=== PATIENT | female | born 1940 | race Caucasian/White ===

== ENCOUNTER 2017-12-02 07:42 | Emergency (ER) | payer MEDICARE ==
--- NOTE | 2017-12-02 07:49 | UC ---
Head Injury HPI - HPI Summary HPI Summary: This is abhishek Lees documenting for attending Larry Adams . This patient is a 77 year old F presenting to [facility] [place] accompanied by her after she fell trying to sit on a stool earlier this morning. 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 The patient rates the pain 8/10 in severity. Patient reports rib pain, scalp laceration, back pain, and trouble breathing. Patient denies dizziness, any other pain, LOC, and neck pain. Pt is not on blood thinners. She has not taken anything for pain. - History Of Current Complaint Stated Complaint: HEAD/RIB INJURY Hx Obtained From: Patient Onset/Duration: Lasting Hours, Still Present Severity Currently: Severe Severity Initially: Severe Pain Intensity: 8 Pain Scale Used: 0-10 Numeric Associated Signs And Symptoms: Positive: Negative - dizziness, any other pain, LOC, and neck pain, Other - rib pain, scalp laceration, back pain, and trouble breathing. - Allergies/Home Medications Allergies/Adverse Reactions: Allergies Allergy/AdvReac Type Severity Reaction Status Date / Time diazepam [From Valium] Allergy unk Verified 12/02/17 07:55 Home Medications: Home Medications Alendronate Sodium 70 mg PO DAILY 12/02/17 [History Confirmed 12/02/17] PMH/Surg Hx/FS Hx/Imm Hx Respiratory History: COPD, Asthma Neurological History: Dementia Other History Of: Negative For: Anticoagulant Therapy - Surgical History Surgical History: Yes Surgery Procedure, Year, and Place: partial lt lung [id number] - Family History Known Family History: Positive: Respiratory Disease Negative: Hypertension, Seizure Disorder, Blood Disorder - Social History Lives: With Family - Alcohol Use: None Substance Use Type: None Smoking Status (MU): Never Smoked Tobacco Review of Systems Constitutional: Other - mechanical fall with head injury Skin: Other - head laceration Respiratory: Other - trouble breathing due to pain Musculoskeletal: Other: - rib pain and back pain All Other Systems Reviewed And Are Negative: Yes Physical Exam - Summary Physical Exam Summary: General: moderate pain distress, no pain distress Skin: on her occiput there is a 5cm scalp laceration that is not actively bleeding Head: normal Eyes: EOMI, DEREK ENT: normal Neck: supple, nontender, she is non tender in the T spine area Respiratory: CTA, breath sounds present Cardiovascular: RRR Abdomen: soft, nontender Bowel: present Musculoskeletal: normal, strength/ROM intact Neurological: sensory/motor intact, A&O x3 Psychological: affect/mood appropriate Triage Information Reviewed: Yes Vital Signs Reviewed: Yes Procedures - Laceration/Wound Repair 1 Location: head Description: Linear Anesthesia: 1.0% - 1cc Length, Depth and Shape: 5cm x subcuntaneous Betadine Prep?: No - Chlorohexadine was used Closure: Chandler #__ - 5 Diagnostics - Radiology CXR Radiology Interpretation Completed By: Radiologist - Hyperinflated lung beck. Left apical pleural thickening and nodular densities in the right upper lobe likely representing chronic changes and scarring. No changes noted since previous exam. Postoperative changes are noted in the left hilum. Dr. Adams has reviewed this report. CT Head Radiology Interpretation Completed By: Radiologist - No intracranial mass or hemorrhage is noted. Dr. Adams has reviewed this report. CT-C spine Radiology Interpretation Completed By: Radiologist - Multilevel degenerative disc disease is noted. No fracture of the cervical spine is noted. Dr. Adams has reviewed this report. CT- Chest Radiology Interpretation Completed By: Radiologist - POSTOPERATIVE CHANGES LEFT HEMITHORAX. NO ACUTE FINDINGS. MULTIPLE COMPRESSION DEFORMITIES MINOR PROGRESSION. Dr. Adams has reviewed this report. Re-Evaluation - Re-Evaluation First Eval Re-Evaluation Time: 08:49 Change: Unchanged Comment: I disucssed the Xray results with the patient and her . Head Injury Course/Dx - Course Course Of Treatment: DISCUSSED RESULTS WITH THE PATIENT AND HER . F/U PMD; RECHECK SOONER IF WORSE. - Differential Dx/Diagnosis Provider Diagnoses: SCALP LACERATION. HEAD INJURY. RIB CONTUSION Discharge - Sign-Out/Discharge Documenting (check all that apply): Patient Departure - Discharge Plan Condition: Stable Disposition: HOME Patient Education Materials: Laceration (ED), Rib Fracture (ED), Head Injury ( ED) Referrals: Clari Mcneal MD [Primary Care Provider] - Additional Instructions: FOLLOW UP WITH YOUR DOCTOR. KARYN OUT IN 7-8 DAYS. GET RECHECKED FOR ANY WORSENING OF YOUR CONDITION; WEAKNESS, NUMBNESS, CONFUSION OR QUESTIONS OR CONCERNS. - Billing Disposition and Condition Condition: STABLE Disposition: Home Attestation Statement Scribe Attestation: This is abhishek Lees documenting for attending Larry Adams . User Type: Provider with Scribe Provider Attestation: The documentation recorded by the scribe accurately reflects the service I personally performed and the decisions made by me.
[2017-12-02] MEDS ORDERED: Acetaminophen TAB* 325 MG PO ONE (08:19)
--- NOTE | 2017-12-02 08:44 | RAD ---
Indication: Chest pain. 2 views of the chest including dual energy PA views demonstrate no mediastinal shift. Heart is of normal size and configuration. There is pleural thickening in the left apex. This is unchanged from previous exam. Lung beck appear hyperinflated. Nodular densities in the right upper lobe are unchanged from previous exam. IMPRESSION: Hyperinflated lung beck. Left apical pleural thickening and nodular densities in the right upper lobe likely representing chronic changes and scarring. No changes noted since previous exam. Postoperative changes are noted in the left hilum.
--- NOTE | 2017-12-02 09:41 | RAD ---
Indication: Fall, head injury. CT of the brain was performed without IV contrast. Ventricular structures are midline. No midline shift is noted. The extra-axial spaces are unremarkable. Central and cortical atrophy is noted. There is no evidence of intracranial mass or hemorrhage. No other high or low density lesions are identified. Mastoid air cells and paranasal sinuses are otherwise unremarkable. IMPRESSION: No intracranial mass or hemorrhage is noted.
--- NOTE | 2017-12-02 09:51 | RAD ---
Indication: Neck injury. CT of the cervical spine was obtained in the axial plane. Sagittal and coronal reconstructed images were obtained. The skull base demonstrates no evidence of fracture. Mastoid air cells are well aerated. Degenerative changes of the atlantoaxial joint is noted. The vertebral bodies appear normal in height. No fracture is noted. Disc space narrowing at C2-C3 is noted. Spondylitic ridge is noted. Osteophyte formation is noted. At C3-C4 left facet arthropathy is noted. No central or foraminal stenosis is noted. At C4-C5 spondylitic ridge with left uncovertebral joint hypertrophy narrowing the left foramen is noted. Left facet arthropathy is noted. At C5-C6 spondylitic ridge with right uncovertebral joint hypertrophy narrows the right foramen. No central stenosis is noted. At C6-C7 spondylitic ridge flattens the thecal sac. Bilateral uncovertebral joint hypertrophy narrows both foramen. At C7-T1 minimal degenerative disc disease is noted. IMPRESSION: Multilevel degenerative disc disease is noted. No fracture of the cervical spine is noted.
[2017-12-02] MEDS ORDERED: Lidocaine 1%* 5 ML VIAL INJ ONE (09:56)
[2017-12-02] MEDS ORDERED: Lidocaine 1%* 5 ML VIAL ONE (09:57)
[2017-12-02 10:03] VITALS: BP 144/75
--- NOTE | 2017-12-02 10:04 | RAD ---
INDICATION: Fall. Chest pain. History of left thoracotomy. History of compression fractures. COMPARISON: Chest x-ray same date; CT chest January 20, 2005; MRI thoracic spine May 15, 2016 TECHNIQUE: Axial source images were obtained from the thoracic inlet to the hemidiaphragms. Coronal and sagittal reconstructed images were acquired. The visualized neck to include the thyroid appear normal. Chest wall: There is osteopenia There are no acute abnormalities of the bony thorax or chest wall. There is evidence of remote left-sided thoracotomy with multiple left-sided rib deformities. No acute bony change is appreciated. There is kyphosis with multiple compression deformities several which are mildly progressive. The T9 and T5 vertebrae are most significantly involved and were described previously. There is no supraclavicular, infraclavicular, or axillary lymphadenopathy. Lungs : There are no worrisome pulmonary parenchymal masses or infiltrates. There is peripheral nodular change in the right lung base but this appears linear on the reconstructions and is most consistent with minimal scarring. There is left apical scarring related to prior surgery. There are underlying emphysematous changes. There are no endobronchial lesions. Cardiomediastinal structures: The heart is normal in size. There is no pericardial effusion. There is no evidence of aortic aneurysm or dissection. The pulmonary vessels appear normal. There is no mediastinal or hilar adenopathy. There are clips in left suprahilar region. The esophagus appears normal. Pleura : There are no pleural-based masses or effusions. Other: There are no acute or significant CT findings of the visualized upper abdomen. IMPRESSION: POSTOPERATIVE CHANGES LEFT HEMITHORAX. NO ACUTE FINDINGS. MULTIPLE COMPRESSION DEFORMITIES MINOR PROGRESSION.
== END 2017-12-02 11:01 | disposition home or self-care (01) ==
LOC: UCEAST 07:42
DX: S20.219A Contusion of unspecified front wall of thorax, initial encounter (principal); S01.01XA Laceration without foreign body of scalp, initial encounter; S09.90XA Unspecified injury of head, initial encounter; W17.89XA Other fall from one level to another, initial encounter; Y93.9 Activity, unspecified; Y92.9 Unspecified place or not applicable; Z88.8 Allergy status to other drugs, medicaments and biological substances
CPT/HCPCS: 12002; 70450; 71046; 71250; 72125; 99211; A9270-GY; G0463

== ENCOUNTER 2017-12-10 09:15 | Emergency (ER) | payer MEDICARE ==
[2017-12-10 09:20] VITALS: BP 146/99
--- NOTE | 2017-12-10 09:25 | UC ---
Laceration HPI - HPI Summary HPI Summary: This is scribe Ed Bernadette documenting for attending Dr. Larry Adams. 77 y/o female presents to the urgent care for staple removal. [place] have been in for 8 days. Located in the middle of the back of the head. Marivel in s/p fall off stool at home 12/02/17. Pt still has some back pain s/p fall, has been taking Tylenol to alleviate pain. PMHx HTN, [place]. I, Dr. Pugh, personally performed the services described in this documentation as scribed in my presence and it is both accurate and complete. - History Of Current Complaint Chief Complaint: UCLaceration Stated Complaint: STAPLE REMOVEAL Hx Obtained From: Patient Laceration Location: Back Mechanism Of Injury: Blunt Trauma - fall off stool Pain Intensity: 5 Pain Scale Used: 0-10 Numeric Aggravating Factors: Nothing - Allergies/Home Medications Allergies/Adverse Reactions: Allergies Allergy/AdvReac Type Severity Reaction Status Date / Time diazepam [From Valium] Allergy unk Verified 12/10/17 09:21 PMH/Surg Hx/FS Hx/Imm Hx Previously Healthy: No Respiratory History: COPD, Asthma Neurological History: Dementia Other History Of: Negative For: Anticoagulant Therapy - Surgical History Surgical History: Yes Surgery Procedure, Year, and Place: partial lt lung [id number] - Family History Known Family History: Positive: Respiratory Disease Negative: Hypertension, Seizure Disorder, Blood Disorder - Social History Alcohol Use: None Substance Use Type: None Smoking Status (MU): Never Smoked Tobacco Review of Systems Constitutional: Negative Skin: Other - marivel at back of head Eyes: Negative ENT: Negative Respiratory: Negative Cardiovascular: Negative Gastrointestinal: Negative Genitourinary: Negative Motor: Negative Neurovascular: Negative Musculoskeletal: Other: - back pain Neurological: Negative Psychological: Negative All Other Systems Reviewed And Are Negative: Yes Physical Exam Triage Information Reviewed: Yes Appearance: Well-Appearing, No Pain Distress Vital Signs: Initial Vital Signs Temp 98 F 12/10/17 09:17 Pulse 78 12/10/17 09:17 Resp 16 12/10/17 09:17 BP 146/99 12/10/17 09:17 Pulse Ox 99 12/10/17 09:17 Vital Signs Reviewed: Yes Eyes: Positive: Conjunctiva Clear ENT: Positive: Normal ENT inspection Neck: Positive: Supple, Nontender Respiratory: Positive: Lungs clear, Normal breath sounds Cardiovascular: Positive: RRR Abdomen Description: Positive: Nontender, Soft Bowel Sounds: Positive: Present Musculoskeletal: Positive: Strength Intact, ROM Intact Neurological: Positive: Alert Psychological: Positive: Age Appropriate Behavior Skin: Positive: Other - 5 cm occipital laceration. 5 marivel in. Some scabbing. No erythema, no drainage. Laceration Course/Dx - Course/Dx Course Of Treatment: LACERATION HEALING WELL, NO SIGNS OF INFECTION AT THIS TIME. - Differential Dx - Laceration/Wound Provider Diagnoses: SCALP STAPLE REMOVAL Discharge - Sign-Out/Discharge Documenting (check all that apply): Patient Departure - Discharge Plan Condition: Stable Disposition: HOME Patient Education Materials: Laceration (ED) Referrals: Clari Mcneal MD [Primary Care Provider] - Additional Instructions: FOLLOW UP WITH YOUR DOCTOR IF NOT COMPLETELY IMPROVED. GET RECHECKED FOR ANY WORSENING OF YOUR CONDITION OR QUESTIONS OR CONCERNS. - Billing Disposition and Condition Condition: STABLE Disposition: Home Procedures - Procedure Summary Procedure Summary: 5 marivel removed at 5 cm occipital laceration, placed 12/03/15
== END 2017-12-10 10:10 | disposition home or self-care (01) ==
LOC: UCEAST 09:15
DX: S01.01XD Laceration without foreign body of scalp, subsequent encounter (principal); W17.89XD Other fall from one level to another, subsequent encounter; Z88.8 Allergy status to other drugs, medicaments and biological substances

== ENCOUNTER 2019-01-04 02:42 | Emergency (ER) | payer MEDICARE ==
[2019-01-04 03:25] LABS: Urine Bacteria Absent (Absent); Urine Red Blood Cell 3+(>10/hpf) (Absent); Urine White Blood Cell 1+(6-10/hpf) (Absent)
[2019-01-04 03:26] LABS: Urine Appearance Cloudy; Urine Color Red
[2019-01-04] MEDS ORDERED: NS 0.9% 1000 ML** 1,000 ML IV ONE (03:30)
--- NOTE | 2019-01-04 03:31 | ED ---
GI/ HPI - HPI Summary HPI Summary: The patient is a 78 y/o F presenting to [facility] with a chief complaint of sudden onset hematuria at 0130 this morning. She reports that shes had increased urinary frequency over the last five days with newer onset dysuria and onset of blood in urine this morning. She denies any fever, nausea, abd pain, or back pain. She states that she doesnt usually have urinary symptoms. Currently, she rates the pain 7/10 in severity. She has used cranberry juice [employer] for preventative measures against a UTI, but her symptoms are still present. PMHx: HTN, asthma, COPD, PNA, diverticulosis, arthritis, headaches, migraines, anxiety , depression. Nonsmoker, no EtOH, no substance use. Medications reviewed. Allergies noted. - History of Current Complaint Chief Complaint: EDUrogenitalProblems Time Seen by Provider: 01/04/19 03:14 Stated Complaint: VAGINAL BLEEDING PER PT Hx Obtained From: Patient Onset/Duration: Started Days Ago - five, Still Present, Worse Since - 0130 today Timing: Lasting Hours Severity: Mild Current Severity: Moderate Pain Intensity: 7 Location of Pain: None Associated Signs and Symptoms: Positive: Hematuria, Dysuria, Other: - Negative: back pain.. Negative: Nausea, Fever, Abdominal Pain - Allergy/Home Medications Allergies/Adverse Reactions: Allergies Allergy/AdvReac Type Severity Reaction Status Date / Time diazepam [From Valium] Allergy unk Verified 01/04/19 02:47 Home Medications: Home Medications Umeclidin/Vilant 62.5 MDI(NF) [ANORO 62.5/25 Ellipta DEVICE (NF)] 1 puff .ROUTE DAILY 01/04/19 [History Confirmed 01/04/19] PMH/Surg Hx/FS Hx/Imm Hx Endocrine/Hematology History: Denies: Hx Anticoagulant Therapy, Hx Diabetes Cardiovascular History: Reports: Hx Hypertension, Other Cardiovascular Problems/ Disorders - PT UNSURE AND DENIES CURRENT ISSUES Denies: Hx Pacemaker/ICD Respiratory History: Reports: Hx Asthma, Hx Chronic Obstructive Pulmonary Disease (COPD), Hx Pneumonia GI History: Reports: Hx Diverticulosis History: Denies: Hx Dialysis, Hx Renal Disease Musculoskeletal History: Reports: Hx Arthritis, Hx Back Problems, Hx Orthopedic Injury, Hx Osteoporosis, Hx Scoliosis Sensory History: Reports: Hx Contacts or Glasses Denies: Hx Hearing Aid Opthamlomology History: Reports: Hx Contacts or Glasses Neurological History: Reports: Hx Headaches, Hx Migraine Psychiatric History: Reports: Hx Anxiety, Hx Depression Denies: Hx Panic Disorder - Cancer History Hx Chemotherapy: No Hx Radiation Therapy: No - Surgical History Surgical History: Yes Surgery Procedure, Year, and Place: partial lt lung [id number] [place] Infectious Disease History: No Infectious Disease History: Denies: Traveled Outside the [place] in Last 30 Days - Family History Known Family History: Positive: Respiratory Disease Negative: Hypertension, Seizure Disorder, Blood Disorder - Social History Alcohol Use: None Hx Substance Use: No Substance Use Type: Reports: None Hx Tobacco Use: No Smoking Status (MU): Never Smoked Tobacco Review of Systems Negative: Fever Negative: Abdominal Pain, Nausea Positive: dysuria, frequency - increased, hematuria Positive: Other - Negative: back pain. All Other Systems Reviewed And Are Negative: Yes Physical Exam - Summary Physical Exam Summary: General: Well-developed, Well-nourished female. No acute distress. HEENT: Normocephalic, Atraumatic. Eyes: Conjuctiva normal, PERRL. Ears: TMs within normal limits. Nares: (-) discharge, (-) erythema. Oropharynx: Clear, mucous membranes moist, (-) exudates. Neck: Soft, FROM, (-) lymphadenopathy, (-) thyromegaly, (-) JVD. Cardiovascular: Normal sinus rhythm, (-) murmur. Lungs: Clear to auscultation bilaterally (-) wheezes, (-) rales, (-) rhonchi. Abdomen: Soft, non-tender, non-distended, (-) organomegaly, normal bowel sounds. Back: (-) CVA tenderness Extremities: No edema. Skin: Warm, dry, (-) rash. Neuro: Alert and oriented x3, no focal deficits. Psychiatric: Mood normal, affect normal. Triage Information Reviewed: Yes Vital Signs On Initial Exam: Initial Vitals Temp Pulse Resp BP Pulse Ox 98 F 88 18 147/83 95 01/04/19 02:44 01/04/19 02:44 01/04/19 02:44 01/04/19 02:44 01/04/19 02:44 Vital Signs Reviewed: Yes Diagnostics - Vital Signs Vital Signs Temp Pulse Resp BP Pulse Ox 01/04/19 02:44 98 F 88 18 147/83 95 - Laboratory Result Diagrams: 01/04/19 03:47 01/04/19 03:47 Lab Statement: Any lab studies that have been ordered have been reviewed, and results considered in the medical decision making process. - CT Abd/Pel CT CT Interpretation Completed By: Radiologist Summary of CT Findings: Impression: 1.The kidneys shows no evidence of a renal cortical mass. No hydronephrosis or nephrolithiasis. Delayed images shows no filling defects within the collecting system or in the proximal ureters. The bladder shows no abnormal bladder wall thickening with the presence of calcified bladder stone. If the hematuria persists consider a dedicated CT nephroureterogram. 2. Right inferior lateral subpleural nodule. This has not changed since the prior study of 02/08/2018. This was not present on the previous CT scan of 04/17/2016. Recommend further correlation with a consideration in a PET/CT or biopsy. ED physician has reviewed this imaging report. Re-Evaluation - Re-Evaluation First Eval Re-Evaluation Time: 06:55 Comment: I have discussed results with the patient. Discussed symptoms that warrant immediate return to ED. GIGU Course/Dx - Course Course Of Treatment: Pt is a 78 y/o F with cc of sudden onset hematuria at 0130 this morning with dysuria onset yesterday and increased urinary frequency starting five days ago. Denies any fever, nausea, abd pain, or back pain. Upon physical exam, the patient exhibits no abdominal tenderness. In the ED course, the patient was administered fluids. Blood work reveals MHC of 32, carbon dioxide of 37, BUN/Creatinine ratio of 36.2, and total protein of 6.2 but is otherwise unremarkable. UA reveals appearance of red urine, 1+ WBCs, and 3+ RBCs. Abdominopelvic CT is negative for renal cortical mass, hydronephrosis, nephrolithiasis, or bladder wall thickening. We discussed all findings and plan for discharge with follow up with urology concerning undetermined cause for hematuria. She understands and agrees with this plan. - Diagnoses Provider Diagnoses: Hematuria Discharge ED - Sign-Out/Discharge Documenting (check all that apply): Patient Departure - Patient will be discharged home. Patient Received Moderate/Deep Sedation with Procedure: No - Discharge Plan Condition: Stable Disposition: HOME Patient Education Materials: Hematuria (ED) Referrals: Clari Mcneal MD [Primary Care Provider] - 3 Days Valentin Mireles MD [Medical Doctor] - 1 Day Additional Instructions: Please follow up with Dr. Mireles from urology concerning today's visit. Please follow up with your primary care provider within three days. Return to the emergency department for any new or worsening symptoms. - Billing Disposition and Condition Condition: STABLE Disposition: Home - Attestation Statements Document Initiated by Scribe: Yes Documenting Scribe: Iqra Neumann Provider For Whom Scribe is Documenting (Include Credential): Dr. Nancy Villa MD Scribe Attestation: Iqra Aguilera, scribed for Dr. Nancy Villa MD on 01/04/19 at 2012. Scribe Documentation Reviewed: Yes Provider Attestation: The documentation as recorded by the Iqra weiss accurately reflects the service I personally performed and the decisions made by me, Dr. Nancy Villa MD Status of Scribe Document: Viewed
[2019-01-04 03:54] LABS: ABS Basophils 0.1 10^3/ul (0-0.2); ABS Eosinophils 0.1 10^3/ul (0-0.6); ABS Lymphocytes 1.2 10^3/ul (1.0-4.8); ABS Monocytes 0.7 10^3/ul (0-0.8); ABS Neutrophils 3.9 10^3/ul (1.5-7.7); Eosinophil % 1.3 %; Hematocrit 42 % (35-47); Hemoglobin 13.9 g/dL (12.0-16.0); Lymphocyte % 20.8 %; Mean Corpuscular HGB Conc 33 g/dL (31-36); Mean Corpuscular Hemoglobin 32 pg (27-31); Mean Corpuscular Volume 97 fL (80-97); Mean Platelet Volume 8.2 fL (7.4-10.4); Platelet Count 206 10^3/uL (150-450); Red Blood Count 4.33 10^6 /uL (3.70-4.87); Red Cell Distribution Width 14 % (10-15)
[2019-01-04 03:58] LABS: INR 1.03 (0.82-1.09)
[2019-01-04 04:15] LABS: ALT 11 U/L (7-52); AST 18 U/L (13-39); Albumin 3.4 g/dL (3.2-5.2); Albumin/Globulin Ratio 1.2 (1-3); Alkaline Phosphatase 50 U/L (34-104); BUN/Creatinine Ratio 36.2 (8-20); Blood Urea Nitrogen 21 mg/dL (6-24); CO2 Carbon Dioxide 37 mmol/L (22-32); Calcium 8.9 mg/dL (8.6-10.3); Chloride 102 mmol/L (101-111); EGFR African American 121.3 (>60); EGFR Non-African American 100.3 (>60); Globulin 2.8 g/dL (2-4); Glucose 90 mg/dL (70-100); Potassium 4.5 mmol/L (3.5-5.0); Sodium 139 mmol/L (135-145); Total Protein 6.2 g/dL (6.4-8.9)
[2019-01-04] MEDS ORDERED: Iohexol 300* (CONTRAST) 10 ML SDV IV ONE (04:55)
[2019-01-04 07:11] VITALS: BP 151/90
--- NOTE | 2019-01-07 07:55 | PN ---
Progress Note - Progress Note Date of Service: 01/04/19 Note: Patient called on 01/07/19 Patient was not placed on antibiotics prior to discharge Escherichia coli 75-100,000 colony count She had a follow-up to Dr. Shen's office the following day Attempted to reach patient on 01/07/19, 2 without answer and unable to leave message Letter sent on 01/07/19 by Akhil product steward
== END 2019-01-04 07:11 | disposition home or self-care (01) ==
LOC: ED 02:42
DX: R31.9 Hematuria, unspecified (principal); I10 Essential (primary) hypertension; J44.9 Chronic obstructive pulmonary disease, unspecified; K57.90 Diverticulosis of intestine, part unspecified, without perforation or abscess without bleeding; F41.9 Anxiety disorder, unspecified; F32.9 Major depressive disorder, single episode, unspecified; Z79.899 Other long term (current) drug therapy; Z88.8 Allergy status to other drugs, medicaments and biological substances
CPT/HCPCS: 36415; 74177; 80053; 81003; 83605; 85025; 85610; 87077; 87086; 87186; 96360; 96361; 99283; Q9967